=== PATIENT | female | born 1985 | race Caucasian/White ===

== ENCOUNTER 2016-10-29 10:20 | Emergency (ER) | payer OTHER ==
--- NOTE | 2016-10-29 11:17 | REP ---
RIGHT KNEE, FIVE VIEWS: HISTORY: Injury. There is no acute fracture or dislocation. The joint spaces are normal in appearance. An ossified density is present adjacent to the medial femoral condyle. This represents ligamentous or tendon calcification. IMPRESSION: There is no acute fracture or dislocation. Signed by Zoran Barlow MD 10/29/2016 11:47 A
--- NOTE | 2016-10-29 11:34 | EDDOCDS ---
Physician Documentation [facility] Name: Daksha Kraft Age: 31 yrs Sex: Female : 1985 Arrival Date: 10/29/2016 Time: 10:20 Bed I6 / 28 Private MD: Rina [facility] [place] Disposition: 10/29/16 11:20 Discharged to Home/Self Care. Impression: Sprain of medial collateral ligament of right knee - possible right medial meniscal tear/injury. - Condition is Stable. - Discharge Instructions: Elastic Bandage and RICE, Knee Sprain, Crutch Use, [id number]. - Prescriptions for Ibuprofen 600 mg Oral Tablet - take 1 tablet by ORAL route every 6 hours As needed take with food; 30 tablet. - Medication Reconciliation, Local Pharmacy Hours form. - Follow up: Jaiden Colbert; When: Call to arrange an appointment; Reason: Further diagnostic work-up, Recheck today's complaints. - Problem is new. - Symptoms are unchanged. Historical: - Allergies: Aspirin; - Home Meds: 1. Lexapro 20 mg Oral tab 1 tab once daily (Last dose: 10/28/2016 21:00) 2. Topamax 75mg Oral daily (Last dose: 10/28/2016 21:00) - PMHx: Migraines; PTSD; - PSHx: ; Tubal ligation; - Social history: Smoking status: Patient uses tobacco products, current every day smoker. No barriers to communication noted, The patient speaks fluent [place] Of [place]. - Family history: Not pertinent. - : The pt / caregiver states he / she is not on anticoagulants. Home medication list is obtained from the patient. - Exposure Risk Screening:: None identified. 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 7 in. (170.18 cm); Pain 7/10; 10:22 Body Mass Index 31.32 (90.72 kg, 170.18 cm) cmb MDM: 10:36 Knee, Complete Ordered. EDMS 11:05 Financial registration complete. lg 11:15 Hesham Wrap ordered. ar2 11:15 Crutches ordered. ar2 Signatures: Dispatcher [employer] Sebastien Byrne, RN RN Adrien Campo, Mukesh Soriano lg, PA-C PA-C ar2 Elena CastroRN RN shareef MTDD
--- NOTE | 2016-10-29 11:34 | EDDOCDS ---
Nurse's Notes [facility] Name: Daksha Kraft Age: 31 yrs Sex: Female : 1985 Arrival Date: 10/29/2016 Time: 10:20 Bed I6 / 28 Private MD: MARILIN Flynn Diagnosis: Sprain of medial collateral ligament of right knee-possible right medial meniscal tear/injury Presentation: 10/29 10:30 Presenting complaint: Patient states: Right knee pain since slipping on wet floor 2 dwg days ago. Adult Sepsis Screening: The patient does not have new or worsening altered mentation. Patient's respiratory rate is less than 22. Systolic blood pressure is greater than 100. Patient has a qSOFA score of 0- Negative Sepsis Screen. Suicide/Homicide risk assessment- the patient denies having any suicidal and/or homicidal ideations and does not present with any other emotional, behavioral or mental health complaints. Status: The patient is a dependent. Transition of care: patient was not received from another setting of care. 10:30 Acuity: JAYLA Level 4 dwg 10:30 Method Of Arrival: Walkin/Carried/Asstd dwg Triage Assessment: 10:32 General: Appears in no apparent distress. Pain: Pain currently is 7 out of 10 on a pain dwg scale. HIV screening NA for this visit Offered previously. 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 Lexapro 20 mg Oral tab 1 tab once daily (Last dose: 10/28/2016 21:00) 2. Topamax 75mg Oral daily (Last dose: 10/28/2016 21:00) - PMHx: Migraines; PTSD; - PSHx: ; Tubal ligation; - Social history: Smoking status: Patient uses tobacco products, current every day smoker. No barriers to communication noted, The patient speaks fluent Cypriot. - Family history: Not pertinent. - : The pt / caregiver states he / she is not on anticoagulants. Home medication list is obtained from the patient. - Exposure Risk Screening:: None identified. Screenin:32 Screening information is obtained from the patient. Fall risk: No risks identified. dsf Assistance ADL's: requires no assistance with activities of daily living. Abuse/DV Screen: The patient / caregiver reports he/she is: not in a situation that causes fear, pain or injury. Nutritional screening: No deficits noted. Advance Directives: Currently, there is no health care proxy. home support is adequate. Assessment: 11:32 Adult Sepsis Screening: The patient does not have new or worsening altered mentation. dsf Patient's respiratory rate is less than 22. Patient has a qSOFA score of 0- Negative Sepsis Screen. General: Appears in no apparent distress, Behavior is appropriate for age, cooperative. Pain: Location: right knee Pain currently is 8 out of 10 on a pain scale. Quality of pain is described as throbbing. Neurological: Level of Consciousness is awake, alert. Cardiovascular: Capillary refill < 3 seconds. Respiratory: Airway is patent Respiratory effort is even, unlabored, Respiratory pattern is regular, symmetrical. Derm: Skin is pink, warm & dry. Vital Signs: 10:22 BP 148 / 80; Pulse 94; Resp 16; Temp 97.2; Pulse Ox 98% ; Weight 90.72 kg; Height 5 ft. cmb 7 in. (170.18 cm); Pain 7/10; 10:22 Body Mass Index 31.32 (90.72 kg, 170.18 cm) cmb Vitals: 10:22 Log In Time: October 29, 2016 at 10:10. cmb ED Course: 10:21 Patient visited by Yocasta Thayer. cmb 10:21 Patient moved to Waiting cmb 10:22 Rina [facility] is Private Physician. cmb 10:23 Patient moved to Pre RCE cmb 10:32 Triage Initiated dwg 10:36 Patient moved to Triage 2 srm 10:40 Mukesh Garcia PA-C is PHCP. ar2 10:40 Ricki Leger MD is Attending Physician. ar2 10:40 Patient visited by Mukesh Garcia PA-C. ar2 10:41 Patient moved to I6 ar2 11:19 Jaiden Colbert is Referral Physician. ar2 11:31 No IV's were initiated during this patient's visit. No procedures done that require dsf assistance. Hesham wrap to right knee. Patient has positive distal pulse, brisk capillary refill, and positive sensation after application. Crutch training done. 11:32 The patient / caregiver is instructed regarding the plan of care and ED course. dsf Order Results: There are currently no results for this order. Outcome: 11:20 Discharge ordered by Provider. ar2 11:32 Discharge Assessment: Patient awake, alert and oriented x 3. No cognitive and/or dsf functional deficits noted. Patient verbalized understanding of disposition instructions. patient administered narcotics - no. The following High Risk Discharge criteria are identified: None. Discharged to home with crutches. Condition: stable. Discharge instructions given to patient, Instructed on discharge instructions, follow up and referral plans. medication usage, Rest, Ice, Compression and Elevation. crutch walking, Demonstrated understanding of instructions, crutch walking, medications, Pt was receptive of discharge instructions/ teaching. Prescriptions given X 1. No special radiology studies were completed. Property sent home with patient. 11:33 Patient left the ED. dsf Signatures: Sebastien Gonsalves, RN Griselda Dacosta RN RN srm Robertshaw, Aaron, HERMINIO DURHAM ar2 Elena Castro RN RN dsf Yocasta Thayer JIM
--- NOTE | 2016-10-31 12:34 | EDDOCDS ---
Physician Documentation [facility] Name: Daksha Kraft Age: 31 yrs Sex: Female : 1985 Arrival Date: 10/29/2016 Time: 10:20 Bed I6 / 28 Private MD: Rina [facility] [place] Disposition: 10/29/16 11:20 Discharged to Home/Self Care. Impression: Sprain of medial collateral ligament of right knee - possible right medial meniscal tear/injury. - Condition is Stable. - Discharge Instructions: Elastic Bandage and RICE, Knee Sprain, Crutch Use, [id number]. - Prescriptions for Ibuprofen 600 mg Oral Tablet - take 1 tablet by ORAL route every 6 hours As needed take with food; 30 tablet. - Medication Reconciliation, Local Pharmacy Hours form. - Follow up: Jaiden Colbert; When: Call to arrange an appointment; Reason: Further diagnostic work-up, Recheck today's complaints. - Problem is new. - Symptoms are unchanged. Historical: - Allergies: Aspirin; - Home Meds: 1. Lexapro 20 mg Oral tab 1 tab once daily (Last dose: 10/28/2016 21:00) 2. Topamax 75mg Oral daily (Last dose: 10/28/2016 21:00) - PMHx: Migraines; PTSD; - PSHx: ; Tubal ligation; - Social history: Smoking status: Patient uses tobacco products, current every day smoker. No barriers to communication noted, The patient speaks fluent Maltese. - Family history: Not pertinent. - : The pt / caregiver states he / she is not on anticoagulants. Home medication list is obtained from the patient. - Exposure Risk Screening:: None identified. 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 7 in. (170.18 cm); Pain 7/10; 10:22 Body Mass Index 31.32 (90.72 kg, 170.18 cm) cmb MDM: 10:36 Knee, Complete Ordered. EDMS 11:05 Financial registration complete. lg 11:15 Hesham Wrap ordered. ar2 11:15 Crutches ordered. ar2 12:50 T-Sheet-- Draft Copy was scanned into [employer] and attached to record. gb 12:50 Radiology Report was scanned into [employer] and attached to record. gb Signatures: Dispatcher [employer] Sebastien Byrne, JASON RN dwg Mary Walsh, Reg Reg gb Adrien Roman, Reg Reg lg Mukesh Garcia, HERMINIO PAMariia ar2 Elena Castro RN RN dsf The chart was reviewed and I authenticate all verbal orders and agree with the evaluation and treatment provided.Attachments: 12:50 T-Sheet-- Draft Copy gb Chart Complete MTDD
--- NOTE | 2016-10-31 12:34 | EDDOCDS ---
Physician Documentation [facility] Name: Daksha Kraft Age: 31 yrs Sex: Female : 1985 Arrival Date: 10/29/2016 Time: 10:20 Bed I6 / 28 Private MD: Rina [facility] [place] Disposition: 10/29/16 11:20 Discharged to Home/Self Care. Impression: Sprain of medial collateral ligament of right knee - possible right medial meniscal tear/injury. - Condition is Stable. - Discharge Instructions: Elastic Bandage and RICE, Knee Sprain, Crutch Use, [id number]. - Prescriptions for Ibuprofen 600 mg Oral Tablet - take 1 tablet by ORAL route every 6 hours As needed take with food; 30 tablet. - Medication Reconciliation, Local Pharmacy Hours form. - Follow up: Jaiden Colbert; When: Call to arrange an appointment; Reason: Further diagnostic work-up, Recheck today's complaints. - Problem is new. - Symptoms are unchanged. Historical: - Allergies: Aspirin; - Home Meds: 1. Lexapro 20 mg Oral tab 1 tab once daily (Last dose: 10/28/2016 21:00) 2. Topamax 75mg Oral daily (Last dose: 10/28/2016 21:00) - PMHx: Migraines; PTSD; - PSHx: ; Tubal ligation; - Social history: Smoking status: Patient uses tobacco products, current every day smoker. No barriers to communication noted, The patient speaks fluent [place]. - Family history: Not pertinent. - : The pt / caregiver states he / she is not on anticoagulants. Home medication list is obtained from the patient. - Exposure Risk Screening:: None identified. 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 7 in. (170.18 cm); Pain 7/10; 10:22 Body Mass Index 31.32 (90.72 kg, 170.18 cm) cmb MDM: 10:36 Knee, Complete Ordered. EDMS 11:05 Financial registration complete. lg 11:15 Hesham Wrap ordered. ar2 11:15 Crutches ordered. ar2 12:50 T-Sheet-- Draft Copy was scanned into [employer] and attached to record. gb 12:50 Radiology Report was scanned into [employer] and attached to record. gb Signatures: Dispatcher [employer] Sebastien Byrne, JASON RN dwg Mary Walsh, Reg Reg gb Adrien Roman, Reg Reg lg Mukesh Garcia, HERMINIO PAMariia ar2 Elena Castro RN RN dsf The chart was reviewed and I authenticate all verbal orders and agree with the evaluation and treatment provided.Attachments: 12:50 T-Sheet-- Draft Copy gb Chart Complete MTDD
--- NOTE | 2016-10-31 12:34 | EDDOCDS ---
Nurse's Notes [facility] Name: Daksha Kraft Age: 31 yrs Sex: Female : 1985 Arrival Date: 10/29/2016 Time: 10:20 Bed I6 / 28 Private MD: MARILIN Flynn Diagnosis: Sprain of medial collateral ligament of right knee-possible right medial meniscal tear/injury Presentation: 10/29 10:30 Presenting complaint: Patient states: Right knee pain since slipping on wet floor 2 dwg days ago. Adult Sepsis Screening: The patient does not have new or worsening altered mentation. Patient's respiratory rate is less than 22. Systolic blood pressure is greater than 100. Patient has a qSOFA score of 0- Negative Sepsis Screen. Suicide/Homicide risk assessment- the patient denies having any suicidal and/or homicidal ideations and does not present with any other emotional, behavioral or mental health complaints. Status: The patient is a dependent. Transition of care: patient was not received from another setting of care. 10:30 Acuity: JAYLA Level 4 dwg 10:30 Method Of Arrival: Walkin/Carried/Asstd dwg Triage Assessment: 10:32 General: Appears in no apparent distress. Pain: Pain currently is 7 out of 10 on a pain dwg scale. HIV screening NA for this visit Offered previously. 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 Lexapro 20 mg Oral tab 1 tab once daily (Last dose: 10/28/2016 21:00) 2. Topamax 75mg Oral daily (Last dose: 10/28/2016 21:00) - PMHx: Migraines; PTSD; - PSHx: ; Tubal ligation; - Social history: Smoking status: Patient uses tobacco products, current every day smoker. No barriers to communication noted, The patient speaks fluent Irish. - Family history: Not pertinent. - : The pt / caregiver states he / she is not on anticoagulants. Home medication list is obtained from the patient. - Exposure Risk Screening:: None identified. Screenin:32 Screening information is obtained from the patient. Fall risk: No risks identified. dsf Assistance ADL's: requires no assistance with activities of daily living. Abuse/DV Screen: The patient / caregiver reports he/she is: not in a situation that causes fear, pain or injury. Nutritional screening: No deficits noted. Advance Directives: Currently, there is no health care proxy. home support is adequate. Assessment: 11:32 Adult Sepsis Screening: The patient does not have new or worsening altered mentation. dsf Patient's respiratory rate is less than 22. Patient has a qSOFA score of 0- Negative Sepsis Screen. General: Appears in no apparent distress, Behavior is appropriate for age, cooperative. Pain: Location: right knee Pain currently is 8 out of 10 on a pain scale. Quality of pain is described as throbbing. Neurological: Level of Consciousness is awake, alert. Cardiovascular: Capillary refill < 3 seconds. Respiratory: Airway is patent Respiratory effort is even, unlabored, Respiratory pattern is regular, symmetrical. Derm: Skin is pink, warm & dry. Vital Signs: 10:22 BP 148 / 80; Pulse 94; Resp 16; Temp 97.2; Pulse Ox 98% ; Weight 90.72 kg; Height 5 ft. cmb 7 in. (170.18 cm); Pain 7/10; 10:22 Body Mass Index 31.32 (90.72 kg, 170.18 cm) cmb Vitals: 10:22 Log In Time: October 29, 2016 at 10:10. cmb ED Course: 10:21 Patient visited by Yocasta Thayer. cmb 10:21 Patient moved to Waiting cmb 10:22 Rina [facility] is Private Physician. cmb 10:23 Patient moved to Pre RCE cmb 10:32 Triage Initiated dwg 10:36 Patient moved to Triage 2 srm 10:40 Mukesh Garcia PA-C is PHCP. ar2 10:40 Ricki Leger MD is Attending Physician. ar2 10:40 Patient visited by Mukesh Garcia PA-C. ar2 10:41 Patient moved to I6 ar2 11:19 Jaiden Colbert is Referral Physician. ar2 11:31 No IV's were initiated during this patient's visit. No procedures done that require dsf assistance. Hesham wrap to right knee. Patient has positive distal pulse, brisk capillary refill, and positive sensation after application. Crutch training done. 11:32 The patient / caregiver is instructed regarding the plan of care and ED course. dsf 11:45 Knee, Complete Returned. EDMS 12:50 T-Sheet-- Draft Copy was scanned into [email or web address] and attached to record. 12:50 Radiology Report was scanned into [email or web address] and attached to record. gb Order Results: Radiology Order: Knee, Complete Test: Knee, Complete REASON FOR EXAMINATION: RIGHT KNEE INJURY; RIGHT KNEE, FIVE VIEWS:; ; HISTORY: Injury.; ; There is no acute fracture or dislocation. The joint spaces are normal in; appearance. An ossified density is present adjacent to the medial femoral; condyle. This represents ligamentous or tendon calcification.; ; IMPRESSION:; ; There is no acute fracture or dislocation.; ; ; Signed by; Zoran Barlow MD 10/29/2016 11:47 A; Outcome: 11:20 Discharge ordered by Provider. ar2 11:32 Discharge Assessment: Patient awake, alert and oriented x 3. No cognitive and/or dsf functional deficits noted. Patient verbalized understanding of disposition instructions. patient administered narcotics - no. The following High Risk Discharge criteria are identified: None. Discharged to home with crutches. Condition: stable. Discharge instructions given to patient, Instructed on discharge instructions, follow up and referral plans. medication usage, Rest, Ice, Compression and Elevation. crutch walking, Demonstrated understanding of instructions, crutch walking, medications, Pt was receptive of discharge instructions/ teaching. Prescriptions given X 1. No special radiology studies were completed. Property sent home with patient. 11:33 Patient left the ED. dsf Signatures: Dispatcher [facility] Sebastien Gonsalves RN RN dwg Michelson, Staci, RN RN [facility] Mary Walsh, Reg Reg Mukesh Garcia, NELI-Tammy PA-Tammy ar2 Elena Castro RN RN dsf [place], [place] cmb Chart Complete MTDD
--- NOTE | 2016-11-01 12:08 | EDDOCDS ---
Nurse's Notes [facility] Name: Daksha Kraft Age: 31 yrs Sex: Female : 1985 Arrival Date: 10/29/2016 Time: 10:20 Bed I6 / 28 Private MD: MARILIN Flynn Diagnosis: Sprain of medial collateral ligament of right knee-possible right medial meniscal tear/injury Presentation: 10/29 10:30 Presenting complaint: Patient states: Right knee pain since slipping on wet floor 2 dwg days ago. Adult Sepsis Screening: The patient does not have new or worsening altered mentation. Patient's respiratory rate is less than 22. Systolic blood pressure is greater than 100. Patient has a qSOFA score of 0- Negative Sepsis Screen. Suicide/Homicide risk assessment- the patient denies having any suicidal and/or homicidal ideations and does not present with any other emotional, behavioral or mental health complaints. Status: The patient is a dependent. Transition of care: patient was not received from another setting of care. 10:30 Acuity: JAYLA Level 4 dwg 10:30 Method Of Arrival: Walkin/Carried/Asstd dwg Triage Assessment: 10:32 General: Appears in no apparent distress. Pain: Pain currently is 7 out of 10 on a pain dwg scale. HIV screening NA for this visit Offered previously. 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 Lexapro 20 mg Oral tab 1 tab once daily (Last dose: 10/28/2016 21:00) 2. Topamax 75mg Oral daily (Last dose: 10/28/2016 21:00) - PMHx: Migraines; PTSD; - PSHx: ; Tubal ligation; - Social history: Smoking status: Patient uses tobacco products, current every day smoker. No barriers to communication noted, The patient speaks fluent Slovak. - Family history: Not pertinent. - : The pt / caregiver states he / she is not on anticoagulants. Home medication list is obtained from the patient. - Exposure Risk Screening:: None identified. Screenin:32 Screening information is obtained from the patient. Fall risk: No risks identified. dsf Assistance ADL's: requires no assistance with activities of daily living. Abuse/DV Screen: The patient / caregiver reports he/she is: not in a situation that causes fear, pain or injury. Nutritional screening: No deficits noted. Advance Directives: Currently, there is no health care proxy. home support is adequate. Assessment: 11:32 Adult Sepsis Screening: The patient does not have new or worsening altered mentation. dsf Patient's respiratory rate is less than 22. Patient has a qSOFA score of 0- Negative Sepsis Screen. General: Appears in no apparent distress, Behavior is appropriate for age, cooperative. Pain: Location: right knee Pain currently is 8 out of 10 on a pain scale. Quality of pain is described as throbbing. Neurological: Level of Consciousness is awake, alert. Cardiovascular: Capillary refill < 3 seconds. Respiratory: Airway is patent Respiratory effort is even, unlabored, Respiratory pattern is regular, symmetrical. Derm: Skin is pink, warm & dry. Vital Signs: 10:22 BP 148 / 80; Pulse 94; Resp 16; Temp 97.2; Pulse Ox 98% ; Weight 90.72 kg; Height 5 ft. cmb 7 in. (170.18 cm); Pain 7/10; 10:22 Body Mass Index 31.32 (90.72 kg, 170.18 cm) cmb Vitals: 10:22 Log In Time: October 29, 2016 at 10:10. cmb ED Course: 10:21 Patient visited by Yocasta Thayer. cmb 10:21 Patient moved to Waiting cmb 10:22 R[place] [facility] [place] Private Physician. cmb 10:23 Patient moved to Pre RCE cmb 10:32 Triage Initiated dwg 10:36 Patient moved to Triage 2 srm 10:40 Mukesh Garcia PA-C is PHCP. ar2 10:40 Ricki Leger MD is Attending Physician. ar2 10:40 Patient visited by Mukesh Garcia PA-C. ar2 10:41 Patient moved to I6 ar2 11:19 Jaiden Colbert is Referral Physician. ar2 11:31 No IV's were initiated during this patient's visit. No procedures done that require dsf assistance. Hesham wrap to right knee. Patient has positive distal pulse, brisk capillary refill, and positive sensation after application. Crutch training done. 11:32 The patient / caregiver is instructed regarding the plan of care and ED course. dsf 11:45 Knee, Complete Returned. EDMS 12:50 T-Sheet-- Draft Copy was scanned into [employer] and attached to record. 12:50 Radiology Report was scanned into [employer] and attached to record. gb Order Results: Radiology Order: Knee, Complete Test: Knee, Complete REASON FOR EXAMINATION: RIGHT KNEE INJURY; RIGHT KNEE, FIVE VIEWS:; ; HISTORY: Injury.; ; There is no acute fracture or dislocation. The joint spaces are normal in; appearance. An ossified density is present adjacent to the medial femoral; condyle. This represents ligamentous or tendon calcification.; ; IMPRESSION:; ; There is no acute fracture or dislocation.; ; ; Signed by; Zoran Barlow MD 10/29/2016 11:47 A; Outcome: 11:20 Discharge ordered by Provider. ar2 11:32 Discharge Assessment: Patient awake, alert and oriented x 3. No cognitive and/or dsf functional deficits noted. Patient verbalized understanding of disposition instructions. patient administered narcotics - no. The following High Risk Discharge criteria are identified: None. Discharged to home with crutches. Condition: stable. Discharge instructions given to patient, Instructed on discharge instructions, follow up and referral plans. medication usage, Rest, Ice, Compression and Elevation. crutch walking, Demonstrated understanding of instructions, crutch walking, medications, Pt was receptive of discharge instructions/ teaching. Prescriptions given X 1. No special radiology studies were completed. Property sent home with patient. 11:33 Patient left the ED. dsf Signatures: Dispatcher [facility] Sebastien Gonsalves RN RN dwg Michelson, Staci, RN RN [facility] Mary Walsh, Reg Reg Mukesh Garcia, NELI-Tammy PA-Tammy ar2 Elena Castro RN RN dsf [place], [place] cmb Chart Complete MTDD
--- NOTE | 2016-11-01 12:08 | EDDOCDS ---
Physician Documentation [facility] Name: Daksha Kraft Age: 31 yrs Sex: Female : 1985 Arrival Date: 10/29/2016 Time: 10:20 Bed I6 / 28 Private MD: Rina [facility] [place] Disposition: 10/29/16 11:20 Discharged to Home/Self Care. Impression: Sprain of medial collateral ligament of right knee - possible right medial meniscal tear/injury. - Condition is Stable. - Discharge Instructions: Elastic Bandage and RICE, Knee Sprain, Crutch Use, [id number]. - Prescriptions for Ibuprofen 600 mg Oral Tablet - take 1 tablet by ORAL route every 6 hours As needed take with food; 30 tablet. - Medication Reconciliation, Local Pharmacy Hours form. - Follow up: Jaiden Colbert; When: Call to arrange an appointment; Reason: Further diagnostic work-up, Recheck today's complaints. - Problem is new. - Symptoms are unchanged. Historical: - Allergies: Aspirin; - Home Meds: 1. Lexapro 20 mg Oral tab 1 tab once daily (Last dose: 10/28/2016 21:00) 2. Topamax 75mg Oral daily (Last dose: 10/28/2016 21:00) - PMHx: Migraines; PTSD; - PSHx: ; Tubal ligation; - Social history: Smoking status: Patient uses tobacco products, current every day smoker. No barriers to communication noted, The patient speaks fluent Cuban. - Family history: Not pertinent. - : The pt / caregiver states he / she is not on anticoagulants. Home medication list is obtained from the patient. - Exposure Risk Screening:: None identified. 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 7 in. (170.18 cm); Pain 7/10; 10:22 Body Mass Index 31.32 (90.72 kg, 170.18 cm) cmb MDM: 10:36 Knee, Complete Ordered. EDMS 11:05 Financial registration complete. lg 11:15 Hesham Wrap ordered. ar2 11:15 Crutches ordered. ar2 12:50 T-Sheet-- Draft Copy was scanned into [employer] and attached to record. gb 12:50 Radiology Report was scanned into [employer] and attached to record. gb Signatures: Dispatcher [employer] Sebastien Byrne, JASON RN dwg Mary Walsh, Reg Reg gb Adrien Roman, Reg Reg lg Mukesh Garcia, HERMINIO PAMariia ar2 Elena Castro RN RN dsf The chart was reviewed and I authenticate all verbal orders and agree with the evaluation and treatment provided.Attachments: 12:50 T-Sheet-- Draft Copy gb Chart Complete MTDD
--- NOTE | 2016-11-01 12:08 | EDDOCDS ---
Physician Documentation [facility] Name: Daksha Kraft Age: 31 yrs Sex: Female : 1985 Arrival Date: 10/29/2016 Time: 10:20 Bed I6 / 28 Private MD: Rina [facility] [place] Disposition: 10/29/16 11:20 Discharged to Home/Self Care. Impression: Sprain of medial collateral ligament of right knee - possible right medial meniscal tear/injury. - Condition is Stable. - Discharge Instructions: Elastic Bandage and RICE, Knee Sprain, Crutch Use, [id number]. - Prescriptions for Ibuprofen 600 mg Oral Tablet - take 1 tablet by ORAL route every 6 hours As needed take with food; 30 tablet. - Medication Reconciliation, Local Pharmacy Hours form. - Follow up: Jaiden Colbert; When: Call to arrange an appointment; Reason: Further diagnostic work-up, Recheck today's complaints. - Problem is new. - Symptoms are unchanged. Historical: - Allergies: Aspirin; - Home Meds: 1. Lexapro 20 mg Oral tab 1 tab once daily (Last dose: 10/28/2016 21:00) 2. Topamax 75mg Oral daily (Last dose: 10/28/2016 21:00) - PMHx: Migraines; PTSD; - PSHx: ; Tubal ligation; - Social history: Smoking status: Patient uses tobacco products, current every day smoker. No barriers to communication noted, The patient speaks fluent Greek. - Family history: Not pertinent. - : The pt / caregiver states he / she is not on anticoagulants. Home medication list is obtained from the patient. - Exposure Risk Screening:: None identified. 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 7 in. (170.18 cm); Pain 7/10; 10:22 Body Mass Index 31.32 (90.72 kg, 170.18 cm) cmb MDM: 10:36 Knee, Complete Ordered. EDMS 11:05 Financial registration complete. lg 11:15 Hesham Wrap ordered. ar2 11:15 Crutches ordered. ar2 12:50 T-Sheet-- Draft Copy was scanned into [employer] and attached to record. gb 12:50 Radiology Report was scanned into [employer] and attached to record. gb Signatures: Dispatcher [employer] Sebastien Byrne, JASON RN dwg Mary Walsh, Reg Reg gb Adrien Roman, Reg Reg lg Mukesh Garcia, HERMINIO PAMariia ar2 Elena Castro RN RN dsf The chart was reviewed and I authenticate all verbal orders and agree with the evaluation and treatment provided.Attachments: 12:50 T-Sheet-- Draft Copy gb Chart Complete MTDD
== END 2016-10-29 11:33 | disposition home or self-care (01) ==
LOC: M ED 10:20
DX: S83.411A Sprain of medial collateral ligament of right knee, initial encounter (principal); W01.0XXA Fall on same level from slipping, tripping and stumbling without subsequent striking against object, initial encounter; Y92.018 Other place in single-family (private) house as the place of occurrence of the external cause; Y93.89 Activity, other specified; Y99.8 Other external cause status; G43.909 Migraine, unspecified, not intractable, without status migrainosus; F43.10 Post-traumatic stress disorder, unspecified; Z79.899 Other long term (current) drug therapy; Z88.6 Allergy status to analgesic agent; F17.210 Nicotine dependence, cigarettes, uncomplicated

== ENCOUNTER → 2016-12-03 | Outpatient (CLI) | payer OTHER ==
--- NOTE | 2016-12-03 09:29 | REP ---
CT STUDY OF THE LEFT KNEE WITHOUT CONTRAST: The bone density is normal for the age of the patient. On the view of the patella, there is some lateral subluxation. The sulcus angle is increased measuring 157 degrees. There is some sclerosis at the intercondylar notch. At the medial joint located slightly superiorly, there is a bone ossicle measuring 11.7 x 3.8 mm. This is probably in the medial collateral ligament. In the distal shaft of the femur located posteriorly and slightly laterally is an area of bone sclerosis and cortical thickening. On the AP view, this has some area of rarefaction. The remaining examination of the knee is unremarkable. IMPRESSION: 1. There is some lateral subluxation of the patella and an increase of sulcus angle which may be a cause factor in this finding. Bone ossicle probably in the medial collateral ligament. 2. The lesion noted in the distal femur may represent a sulcal linear intramedullary density or sclerosis. This can be a normal variant. However, this patient should have a nuclear medicine study in order to exclude any possibility of an active lesion. Unreviewed MTDD
--- NOTE | 2016-12-03 11:57 | REP ---
THREE-PHASE BONE SCAN: 12/03/2016. Comparison: CT right knee 12/03/2016, MRI 11/27/2016, x-ray 11/20/2016. Clinical history: Distal femoral bone lesion on x-ray and MRI. Technique: The patient received 21.6 mCi technetium 99m MDP via an IV. Anterior and posterior flow, pool and delayed images over the knees extending to the mid thigh and mid calf. Lateral pool and delayed views also obtained. Symmetric flow noted without abnormal increased flow on either side. On the pool images, there is some increased activity over the lateral aspect of the patella. On the delayed images, there is abnormal activity at the patella and mild increased activity at the tibial plateau medial and lateral articular margins as well as the proximal tibiofibular articular margins all consistent with degenerative change. The area of the bone lesion in the distal femoral shaft posterolaterally shows no abnormal uptake on any phase. There is no photopenia. 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 Impression: 1. Degenerative changes at the knee joint bilaterally which are mild and with increased activity laterally in the patella representing more significant degenerative change. There was a bone bruise in the patella on the MRI seen only laterally and some patellar chondromalacia and degenerative change. No other abnormal activity or significant finding. Signed by Nimesh Burton MD 12/03/2016 05:42 P
== END ==
LOC: M RAD 07:28
PROVIDERS: ATTEND Physician Assistant Medical
DX: M17.11 Unilateral primary osteoarthritis, right knee (principal); M22.8X1 Other disorders of patella, right knee

== ENCOUNTER → 2025-08-22 | Outpatient (CLI) | payer OTHER ==
[~2025-08-22] MED LIST: LEXA1TAB PO
== END ==
LOC: M WUC 12:48
DX: M79.601 Pain in right arm (principal); M79.641 Pain in right hand

== ENCOUNTER → 2025-09-23 | Outpatient (CLI) | payer OTHER | LOC: M WUC 11:41 | PROVIDERS: ATTEND Physician Assistant | DX: J06.9 Acute upper respiratory infection, unspecified (principal) ==

== ENCOUNTER 2025-09-30 01:43 | Emergency (ER) | payer OTHER ==
[~2025-09-30] VITALS: Ht 170.2 cm; Wt 84.5 kg
[2025-09-30 03:08] LABS: BASO # 0.1 10^3/uL (0.0-0.2); BASO % 0.6 % (0.0-1.0); EOS # 0.1 10^3/uL (0.0-0.5); EOS % 1.4 % (0.0-3.0); LYMPH # 3.2 10^3/uL (1.5-5.0); LYMPH % 35.3 % (24.0-44.0); MONO # 0.7 10^3/uL (0.0-0.8); MONO % 7.3 % (2.0-8.0); NEUTROPHILS # 5.0 10^3/uL (1.5-8.5); NEUTROPHILS % 55.2 % (36.0-66.0); PLATELET COUNT, AUTOMATED 316 10^3/uL (150-450)
[2025-09-30 03:29] LABS: INR 0.92
[2025-09-30 03:30] LABS: CK-MB VALUE MASS < 1.0 NG/ML (<3.6)
[2025-09-30] MEDS ORDERED: ISOVUE-370 76% 100 ML VIAL As Ordered ONE (03:30)
[2025-09-30 03:32] LABS: CPK CREATINE PHOSPHOKINASE 56 U/L (34-145)
[2025-09-30 03:42] LABS: FREE T4 1.38 NG/DL (0.89-1.76)
[2025-09-30 03:49] LABS: ALT/SGPT 23 U/L (7.0-40); AST/SGOT 12 U/L (<34); CALCIUM LEVEL 7.8 MG/DL (8.5-10.1); CARBON DIOXIDE LEVEL 23 MMOL/L (20-31); CHLORIDE LEVEL 109 MMOL/L (98-107); CREATININE FOR GFR 0.71 MG/DL (0.55-1.30); GLOMERULAR FILTRATION RATE > 90.0 (>60); POTASSIUM SERUM 4.1 MMOL/L (3.5-5.1); SODIUM LEVEL 141 MMOL/L (136-145)
[2025-09-30 04:43] VITALS: TEMP 98.8
[2025-09-30 05:58] VITALS: BP 152/79; O2SAT 97
[2025-09-30] MEDS ORDERED: MELO15TA28 PO (06:01)
[2025-09-30] MEDS ORDERED: BENZ200C70 PO (06:01)
[2025-09-30] MEDS ORDERED: AZIT-12 PO (06:03)
[2025-09-30] MEDS: KETOROLAC 30 MG/ML 1 ML VIAL IV ONE (06:24)
== END 2025-09-30 06:41 | disposition home or self-care (01) ==
LOC: M ED 01:43
DX: R09.1 Pleurisy (principal); K21.9 Gastro-esophageal reflux disease without esophagitis; K58.9 Irritable bowel syndrome, unspecified; Z79.899 Other long term (current) drug therapy; Z88.8 Allergy status to other drugs, medicaments and biological substances
CPT/HCPCS: 71045; 71275; 80048; 80076; 82550; 82553; 83690; 84439; 84443; 84484; 85025; 85610; 87486; 87581; 87633; 87798; 93005; 93041; 94760; 96374; 99285; J1885; Q9967